=== PATIENT | male | born 1955 | race Caucasian/White ===

== ENCOUNTER 2017-07-24 14:36 | Emergency (ER) | payer MEDICARE, OTHER ==
[~2017-07-24] VITALS: Ht 170.2 cm; Wt 129.7 kg
[~2017-07-24 14:36] MED LIST: ACETAMINOPHEN-1 EAC1 ORAL; ALEVE220 MG PO; ASPIR 8181 MG ORAL; IBUPROFEN800 MG ORAL; NORCO 5-325 TA1 EACH ORAL; RANITIDINE HCL150 MG ORAL; TRAZODONE HCL150 MG ORAL; TYLENOL325 MG PO; UNISOM50 MG PO; [UNRECOGNIZED DRUG - REMARK]
--- NOTE | 2017-07-24 15:40 | Emergency Room Report ---
History of Present Illness General Chief Complaint: Upper Respiratory Illness Source: Patient Present Illness HPI Pt. presents to the ED c/o cough congestion and right ear discomfort time one week. Patient reports his right ear pain as 6/10 in severity. Patient also has sore throat which is exacerbated upon swallowing. Denies swollen tender lymph nodes or lower extremity edema. Denies fevers or chills. Denies sore throat, ear pain, high fevers, lethargy, neck pain/stiffness, irritability, photophobia dehydration, N/V/D. Denies Cp, Palpitations, LOC, AMS, seizures, paresthesias, or changes in Hearing or vision, no Sudden severe [place]. hx of bronchitis. 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, Gout Hx Hypertension: No Hx Pacemaker: No Hx Asthma: No Hx COPD: No Hx Diabetes: No Hx Cancer: No Hx Gastrointestinal Problems: Yes - Gastric bypass December 30, 2011 Hx Dialysis: No Hx Cerebrovascular Accident: No Hx Seizures: No Review of Systems All Other Systems: negative except mentioned in HPI Physical Exam Vital Signs Date Time Temp Pulse Resp B/P (MAP) Pulse Ox O2 Delivery O2 Flow Rate FiO2 07/24/17 15:02 98.2 68 19 130/76 94 Room Air Sp02 EP Interpretation: reviewed, normal General Appearance: no apparent distress, alert, GCS 15, non-toxic Head: normocephalic, atraumatic ENT: hearing grossly normal, normal voice, uvula midline, moist mucus membranes , nasal congestion, pharyngeal erythema - no exudates. , other - cerumen impaction of the right ear, no tragal ttp. Tonsils are surgically abscent. Neck: full range of motion, no meningismus, no bony tend Respiratory: lungs clear, normal breath sounds, no rhonchi, no respiratory distress, no wheezing, speaking full sentences Cardiovascular #1: regular rate, rhythm, no edema Musculoskeletal: back normal, gait/station normal, normal range of motion, non- tender Neurologic: alert, oriented x3, responsive, motor strength/tone normal, sensory intact, speech normal, grossly normal Psychiatric: judgement/insight normal Skin: normal color, no rash, warm/dry, well hydrated Lymphatic: no adenopathy Medical Decision Making PA Attestation Dr. Raines is my supervising Physician whom patient management has been discussed with. Diagnostic Impression: Primary Impression: Upper respiratory infection Qualified Codes: J06.9 - Acute upper respiratory infection, unspecified Additional Impression: Impacted cerumen of right ear ER Course Pt. presents to the ED c/o cough congestion and right ear discomfort time one week. Patient reports his right ear pain as 6/10 in severity. Patient also has sore throat which is exacerbated upon swallowing. Denies swollen tender lymph nodes or lower extremity edema. Denies fevers or chills. Denies sore throat, ear pain, high fevers, lethargy, neck pain/stiffness, irritability, photophobia dehydration, N/V/D. Denies Cp, Palpitations, LOC, AMS, seizures, paresthesias, or changes in Hearing or vision, no Sudden severe [place]. hx of bronchitis. Ddx considered but are not limited to URI, pneumonia, PE, strep pharyngitis, meningitis. Vital signs: Pt. is afebrile, the remaining VS are WNL H&PE are most consistent with URI- no meningeal signs, oropharynx is not involved, no evidence of bacterial infection at this time. * pt. also noted to have impacted cerumen of the right ear ORDERS: none required at this time, the diagnosis is clinical ED INTERVENTIONS: None required at this time. --PT. EDUCATION: Discussed antibiotic resistance with inappropriate prescribing of antibiotics for viral illnesses. Discussed signs and symptoms to indicate viral illness versus bacterial illness. DISCHARGE: At this time pt. is stable for d/c to home. Will provide printed patient care instructions, and any necessary prescriptions. Care plan and follow up instructions have been discussed with the patient prior to discharge. Last Vital Signs Date Time Temp Pulse Resp B/P (MAP) Pulse Ox O2 Delivery O2 Flow Rate FiO2 07/24/17 15:08 68 19 Room Air 07/24/17 15:02 98.2 130/76 94 Disposition: HOME, SELF-CARE Condition: Stable Scripts Lidocaine HCl 2% Viscous (Lidocaine HCl 2% Viscous) 100 Ml Solution 15 ML ORAL QID, #200 ML Prov: Patricia López P.A. 07/24/17 Acetaminophen* (TYLENOL EXTRA STRENGTH*) 500 Mg Tablet 500 MG ORAL Q6H Y for Mild Pain/Temp > 100.5, #20 TAB 0 Refills Prov: Patricia López 07/24/17 Guaifenesin/D-Methorphan Hb/Pe (ROBITUSSIN COUGH-COLD CF LIQ) 118 Ml Liquid 5 ML PO Q6HR, #120 ML Prov: Patricia López 07/24/17 Carbamide Peroxide (DEBROX) 15 Ml Drops 10 DROP RIGHT EAR TWICE A DAY for 4 Days, #15 ML 0 Refills Prov: Patricia López 07/24/17 Patient Instructions: Upper Respiratory Infection, Adult Additional Instructions: Take medications as directed. Follow up with a Primary Care Provider in 3-5 days, even if your symptoms have resolved. --Please review list of primary care clinics, if you do not already have a primary care provider Return sooner to ED if new symptoms occur, or current symptoms become worse. - Please note that this Emergency Department Report was dictated using [employer] agent technology software, occasionally this can lead to erroneous entry secondary to interpretation by the dictation equipment. Patricia López Jul 24, 2017 15:40
[2017-07-24] MEDS ORDERED: LIDOCAINE VISC100 ML ORAL (15:44)
[2017-07-24] MEDS ORDERED: TYLENOL EXTRA500 MG ORAL (15:44)
[2017-07-24] MEDS ORDERED: DEBROX15 M1 RIGHT EAR (15:44)
[2017-07-24] MEDS ORDERED: ROBITUSSIN COU118 M1 PO (15:44)
[2017-07-24 16:19] VITALS: BP 130/76
== END 2017-07-24 16:19 | disposition home or self-care (01) ==
LOC: EMR 15:18
DX: J06.9 Acute upper respiratory infection, unspecified (principal); H61.21 Impacted cerumen, right ear
CPT/HCPCS: 99284

== ENCOUNTER 2017-10-19 14:59 | Emergency (ER) | payer MEDICARE, OTHER ==
[~2017-10-19] VITALS: Ht 175.3 cm; Wt 122.5 kg
[~2017-10-19 14:59] MED LIST changes: +DEBROX15 M1 RIGHT EAR; +LIDOCAINE VISC100 ML ORAL; +ROBITUSSIN COU118 M1 PO; +TYLENOL EXTRA500 MG ORAL
[2017-10-19] MEDS ORDERED: ALLOPURINOL100 M1 ORAL (15:06)
[2017-10-19 15:09] VITALS: BP 130/77
--- NOTE | 2017-10-19 15:40 | Diagnostic Imaging Report ---
Indication: Chest pain Comparison: 11/09/2015 A single view chest radiograph was obtained. Findings: The heart is enlarged. The aorta is ectatic. Lungs are clear. Bones are osteopenic. IMPRESSION: No acute disease
[2017-10-19] MEDS ORDERED: Albuterol/Ipratropium 3ml neb HHN ONE (16:30)
--- NOTE | 2017-10-19 16:56 | Emergency Room Report ---
History of Present Illness General Chief Complaint: General Complaint Source: Patient Present Illness HPI 62-year-old male presents to the emergency department complaining of productive cough with intermittent clear sputum 2-3 weeks without associated fevers or chills. Patient denies lower extremity edema, sore throat, neck pain or stiffness. Patient denies recent travel or ill contacts. Denies shortness of breath or wheezing. Patient also reports 8 out of 10 in severity tenderness and thickened skin to the left second toe. He denies history of diabetes he reports he was prediabetic before he had gastric bypass surgery. Patient reports she has been having this for over a year. Denies CP, Palpitations, LOC, AMS, dizziness, Changes in Vision, Sensation, paresthesias, or a sudden severe headache. 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, Gout Hx Hypertension: No Hx Pacemaker: No Hx Asthma: No Hx COPD: No Hx Diabetes: No Hx Cancer: No Hx Gastrointestinal Problems: Yes - Gastric bypass December 30, 2011 Hx Dialysis: No Hx Cerebrovascular Accident: No Hx Seizures: No Review of Systems All Other Systems: negative except mentioned in HPI Physical Exam Vital Signs Date Time Temp Pulse Resp B/P (MAP) Pulse Ox O2 Delivery O2 Flow Rate FiO2 10/19/17 15:02 98.2 65 18 130/77 94 Room Air 98.2 10/19/17 16:30 21 Sp02 EP Interpretation: reviewed, normal General Appearance: no apparent distress, alert, GCS 15, non-toxic, obese Head: normocephalic, atraumatic Eyes: bilateral eye normal inspection, bilateral eye PERRL ENT: hearing grossly normal, normal voice Neck: full range of motion Respiratory: lungs clear, no rhonchi, no respiratory distress, no retraction, no accessory muscle use, speaking full sentences, wheezing - expiratory- minimal Cardiovascular #1: regular rate, rhythm, no edema, normal capillary refill Musculoskeletal: back normal, gait/station normal, normal range of motion, tender - mild ttp to 0.4cm corn on the bottom of the left 2nd toe, no ulcers, blisters or evidence of infection. Neurologic: alert, oriented x3, responsive, motor strength/tone normal, sensory intact, normal gait, speech normal, grossly normal Psychiatric: judgement/insight normal Skin: normal color, no rash, warm/dry, well hydrated, other - 0.4cm corn on the bottom of the left 2nd toe, no ulcers, blisters or evidence of infection. Lymphatic: no adenopathy Medical Decision Making PA Attestation Dr. Vergara is my supervising Physician whom patient management has been discussed with. Diagnostic Impression: Primary Impression: Bronchitis Additional Impression: [place] of [place] ER Course 62-year-old male presents to the emergency department complaining of productive cough with intermittent clear sputum 2-3 weeks without associated fevers or chills. Patient denies lower extremity edema, sore throat, neck pain or stiffness. Patient denies recent travel or ill contacts. Denies shortness of breath or wheezing. Patient also reports 8 out of 10 in severity tenderness and thickened skin to the left second toe. He denies history of diabetes he reports he was prediabetic before he had gastric bypass surgery. Patient reports she has been having this for over a year. Denies CP, Palpitations, LOC, AMS, dizziness, Changes in Vision, Sensation, paresthesias, or a sudden severe headache. Ddx considered but are not limited to URI, pneumonia, PE, strep pharyngitis, meningitis. Vital signs: Pt.is afebrile VS are WNL H&PE are most consistent with bronchitis ORDERS: -CXR: no acute pathology, cardiomegaly is noted. ED INTERVENTIONS: -[place]o [place] DISCHARGE: At this time pt. is stable for d/c to home. Will provide printed patient care instructions, and any necessary prescriptions. Care plan and follow up instructions have been discussed with the patient prior to discharge. Chest X-Ray Diagnostic Results Chest X-Ray Diagnostic Results : Chest X-Ray Ordered: Yes # of Views/Limited/Complete: 1 View EP Interpretation: Yes CHI Xray: Interpretation reviewed, by supervising MD Interpretation: no consolidation, no effusion, no pneumothorax, no acute cardiopulmonary disease - cardiomegaly Impression: No acute disease Electronically Signed by: Patricia López PA-C Last Vital Signs Date Time Temp Pulse Resp B/P (MAP) Pulse Ox O2 Delivery O2 Flow Rate FiO2 10/19/17 16:46 60 16 100 Room Air 21 5/1/18 15:09 98.2 130/77 98.2 Disposition: HOME, SELF-CARE Condition: Stable Scripts Salicylic Acid (CORN REMOVER) 1 Each Adh..patch 1 EACH TP DAILY, #7 PATCH Prov: Patricia López 10/19/17 Guaifenesin (Guaifenesin) 1,200 Mg Tab.er.12h 1200 MG PO BID, #20 TAB Prov: Patricia López 10/19/17 Benzonatate* (TESSALON PERLE*) 100 Mg Capsule 100 MG ORAL THREE TIMES A DAY, #21 PERLE Prov: Patricia López 10/19/17 Albuterol Sulfate* (ALBUTEROL SULFATE MDI*) 8.5 Gm Hfa.aer.ad 2 PUFF INH Q3H, #1 INH 0 Refills Prov: Patricia López 10/19/17 Referrals: NON PHYSICIAN (PCP) Patient Instructions: Acute Bronchitis, [id number], Chronic Bronchitis Additional Instructions: Take medications as directed. Follow up with a Primary Care Provider in 3-5 days, even if your symptoms have resolved. ALSO POSTDOCTORAL FELLOW EVALUATION --Please review list of primary care clinics, if you do not already have a primary care provider Return sooner to ED if new symptoms occur, or current symptoms become worse. - Please note that this Emergency Department Report was dictated using [employer] machine loader technology software, occasionally this can lead to erroneous entry secondary to interpretation by the dictation equipment. Patricia López October 19, 2017 16:56
[2017-10-19] MEDS ORDERED: TESSALON PERLE100 MG ORAL (16:57)
[2017-10-19] MEDS ORDERED: ALBUTEROL SULF8.5 GM INH (16:57)
[2017-10-19] MEDS ORDERED: GUAIFENESIN1200 MG PO (16:57)
[2017-10-19] MEDS ORDERED: [UNRECOGNIZED DRUG - OTHER] TP (17:23)
[2017-10-19 17:31] VITALS: BP 126/74
== END 2017-10-19 17:34 | disposition home or self-care (01) ==
LOC: EMR 16:26
DX: J40 Bronchitis, not specified as acute or chronic (principal); L84 Corns and callosities
CPT/HCPCS: 71045; 94640; 94664; 99284; J7620

== ENCOUNTER 2018-01-29 20:09 | Emergency (ER) | payer MEDICARE, OTHER ==
[~2018-01-29] VITALS: Ht 175.3 cm; Wt 134.7 kg
[~2018-01-29 20:09] MED LIST changes: +ALBUTEROL SULF8.5 GM INH; +ALLOPURINOL100 M1 ORAL; +GUAIFENESIN1200 MG PO; +TESSALON PERLE100 MG ORAL; +[UNRECOGNIZED DRUG - OTHER] TP
[2018-01-29] MEDS ORDERED: Cephalexin 500mg cap ORAL ONE (20:45)
[2018-01-29] MEDS ORDERED: Bactrim-DS 1 tab ORAL ONE (20:45)
[2018-01-29 21:05] VITALS: BP 101/64
--- NOTE | 2018-01-29 21:59 | Emergency Room Report ---
History of Present Illness General Chief Complaint: General Complaint Source: Patient Present Illness HPI Mr. Gramajo is a pleasant 63 yo male with hx of DVT who presents with right lower leg redness and drainage. Mild pain. gradual onset days ago. No trauma. Remote hx of DVT in same leg. 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, Gout Hx Hypertension: No - HX OF BLOOD CLOT RT LEG Hx Pacemaker: No Hx Asthma: No Hx COPD: No Hx Diabetes: No Hx Cancer: No Hx Gastrointestinal Problems: Yes - Gastric bypass December 30, 2011 Hx Dialysis: No Hx Cerebrovascular Accident: No Hx Seizures: No Review of Systems Constitutional: Denies: fever, malaise Respiratory: Denies: cough Cardiovascular: Denies: chest pain Skin: Reports: rash All Other Systems: negative except mentioned in HPI Physical Exam Vital Signs Date Time Temp Pulse Resp B/P (MAP) Pulse Ox O2 Delivery O2 Flow Rate FiO2 01/29/18 20:13 98.1 64 18 121/79 95 Room Air 98.1 Sp02 EP Interpretation: reviewed, normal General Appearance: no apparent distress, alert, GCS 15, non-toxic Head: normocephalic, atraumatic Eyes: bilateral eye normal inspection ENT: hearing grossly normal, no angioedema, normal voice Neck: full range of motion, supple/symm/no masses Respiratory: chest non-tender, lungs clear, normal breath sounds, speaking full sentences Cardiovascular #1: regular rate, rhythm, no edema, edema Gastrointestinal: normal bowel sounds, non tender, soft, non-distended, no guarding, no rebound Musculoskeletal: gait/station normal, normal range of motion Neurologic: alert, oriented x3, responsive, motor strength/tone normal, sensory intact, speech normal Psychiatric: judgement/insight normal, memory normal, mood/affect normal Skin: normal color, warm/dry, well hydrated, rash - erythematous patchy rash l right side small ulcers purulent drainage Lymphatic: no adenopathy Medical Decision Making Diagnostic Impression: Primary Impression: Cellulitis ER Course cellulitis in setting of venous stasis, rx: antibiotic ointment, keflex, bactrim U/S ruled out DVT CT/MRI/US Diagnostic Results CT/MRI/US Diagnostic Results : Imaging Test Ordered: duplex ultrasound negative for DVT Last Vital Signs Date Time Temp Pulse Resp B/P (MAP) Pulse Ox O2 Delivery O2 Flow Rate FiO2 01/29/18 21:05 98.3 63 18 101/64 96 Room Air 98.3 Disposition: HOME, SELF-CARE Condition: Stable Referrals: NON PHYSICIAN (PCP) ROB HIGGINBOTHAM Jan 29, 2018 21:59
[2018-01-29] MEDS ORDERED: Bacitracin Oint UD TOPIC ONE (22:00)
[2018-01-29] MEDS ORDERED: BACTRIM DS TAB1 EAC1 ORAL ×2 (22:01→22:03)
[2018-01-29] MEDS ORDERED: CEPHALEXIN500 MG ORAL (22:01)
[2018-01-29] MEDS ORDERED: NEOSPORIN OINT30 GM EXT (22:04)
[2018-01-29 22:18] VITALS: BP 117/62
[2018-01-29 22:33] VITALS: BP 117/62
--- NOTE | 2018-02-02 23:39 | Diagnostic Imaging Report ---
APPROVED REPORT CPT Code: 68072 Present Symptoms Lower Extremity Pain: Right Comments: Wound Technically difficult, limited study due to body habitus. RIGHT LEG: Venous imaging reveals a patent deep venous system. There is no evidence of thrombus within the femoral, popliteal or tibial segments. The greater saphenous vein is also within normal limits. Doppler indicates normal spontaneous flow within these segments.
== END 2018-01-29 22:33 | disposition home or self-care (01) ==
LOC: EMR 21:04
DX: L03.115 Cellulitis of right lower limb (principal); Z86.718 Personal history of other venous thrombosis and embolism
CPT/HCPCS: 93971; 99284